=== PATIENT | female | born 1975 | race Caucasian/White ===

== ENCOUNTER 2017-07-15 04:20 | Emergency (ER) | payer OTHER ==
[~2017-07-15] VITALS: Ht 167.6 cm; Wt 99.8 kg
--- NOTE | ~2017-07-15 | CT4 ---
[facility] A Service of [facility] & [facility] RADIOLOGY TEXT RESULTS PATIENT: MARISOL FLOYD LOCATION: SED : 79 UNIT #: [id number] AGE: [address]: Hermilo Cruz MD SEX: F ORDER DR: [id number] [address] [address] [id number] MR#: [id number] Acc #: [id number] NAME: MARISOL FLOYD : 1975 SEX: F STUDY DATE/TIME: 07/15/2017 5:53 UNIT: SED ROOM: STUDY DESCRIPTION: CT Abd and Pelv Wo Cont Attending Physician: eHrmilo Cruz M.D. Ordering Physician: Maikel Owens M.D. Primary Care Physician: Lamberto Contreras M.D. MEDICAL IMAGING REPORT This report is preliminary unless electronic signature is present. EXAM CT abdomen and pelvis without contrast INDICATION Right upper quadrant and mid abdomen pain for 2 days. TECHNIQUE Axial 3 mm images were obtained through the abdomen and pelvis without IV or oral contrast. Sagittal and coronal reconstructions were generated. Comparison to 12/24/2014. This CT examination was performed with one or more of the following radiation dose reduction techniques: automatic exposure control, adjustment of mA and/or kV according to patient size, and iterative reconstruction. FINDINGS The lung bases are clear. The liver, gallbladder, spleen, pancreas, adrenal glands and kidneys are normal. There are no urinary stones or obstruction. The aorta is normal in size. There is no adenopathy. The appendix is normal. The bowel is normal. The uterus and adnexal regions are normal with a slightly prominent left ovary that is unchanged from 12/24/2014. The object that appears to represent the left ovary is about 4.5 cm in diameter. Previously, it was 4.2 cm in diameter. The right ovary is not clearly seen. The bladder is normal. The bones are unremarkable. IMPRESSION 1. The appendix is normal. There are no urinary stones identified. 2. The left ovary appears slightly prominent measuring about 4-4.5 cm in diameter. This is unchanged from 12/24/2014. No cyst is identified. 3. Otherwise, the study is normal. [facility]. [facility] A Service of [facility] & [facility] RADIOLOGY TEXT RESULTS PATIENT: MARISOL FLOYD LOCATION: [facility] [place] : [birth year] UNIT #: [id number] AGE: [address]: Hermilo Cruz MD SEX: F ORDER DR: Dictated by... Dmitry Morse M.D. THIS IS AN ELECTRONICALLY VERIFIED REPORT Dmitry Morse M.D. at 07/15/2017 12:26 PM PENELOPE/sandee TD: 07/15/2017 09:32 JOB #: [id number] MEDICAL IMAGING REPORT Page 1 of 1
[~2017-07-15 04:20] MED LIST: BENTYL20 MG PO; DICLOFENAC PO; FLEXERIL10 MG PO; LAXATIVE; LOESTRIN1 TA1; MUCINEX DM1 TAB.SR . PO; NO MEDICATIONS; PHENERGAN PO; PHENERGAN25 M1 PO; PREDNISONE10 MG PO; PROBIOTIC1 EACH; TRAMADOL HCL50 M1 PO; ULTRAM PO; VICODIN 5/1 TAB 5/50 PO; VICODIN 5/500 T1 TAB PO
[2017-07-15] MEDS ORDERED: MOBIC15 MG PO (04:26)
[2017-07-15 05:18] LABS: BASOPHIL% 0.6 % (0-2.5); EOSINOPHIL# 0.1 X10e3 (0-0.7); EOSINOPHIL% 1.8 % (0.0-7.0); HEMATOCRIT 39.5 % (35.0-45.0); HEMOGLOBIN 13.6 gm/dL (12.0-16.0); LYMPHOCYTE# 2.1 X10e3 (1.0-3.5); LYMPHOCYTE% 39.3 % (17.0-45.0); MEAN CELL VOLUME 88.6 FL (83-96); MEAN CORPUSCULAR HEMOGLOBIN 30.6 PG (28-34); MEAN CORPUSCULAR HGB CONC 34.5 g/dL (30-36); MEAN PLATELET VOLUME 7.3 FL (6.5-11.5); MONOCYTE# 0.4 X10e3 (0-1.0); MONOCYTE% 8.5 % (3.0-12.0); NEUTROPHIL# 2.6 X10e3 (1.5-7.1); NEUTROPHIL% 49.8 % (40-75); PLATELET COUNT 338 X10e3 (140-420); RED BLOOD COUNT 4.46 X10e (3.90-5.30); RED CELL DISTRIBUTION WIDTH 12.9 % (11.0-15.5); WHITE BLOOD COUNT 5.3 X10e3 (4.0-10.5)
[2017-07-15 05:25] LABS: DIFF IND NO
[2017-07-15 05:26] LABS: URINE SOURCE CLEAN CATCH
[2017-07-15 05:28] LABS: URINE APPEARANCE CLEAR; URINE BILIRUBIN NEG (NEG); URINE BLOOD 2+ (NEG); URINE COLOR YELLOW; URINE GLUCOSE NEG (NORM); URINE KETONE NEG (NEG); URINE LEUKOCYTE ESTERASE NEG (NEG); URINE NITRATE NEG (NEG); URINE PROTEIN NEG (NEG); URINE SPECIFIC GRAVITY 1.025 (1.003-1.035)
[2017-07-15 05:29] LABS: MICRO INDICATED? YES
[2017-07-15 05:30] LABS: CULTURE INDICATED? NO; URINE BACTERIA NEG (NEG); URINE SQUAMOUS EPITHELIAL CELL OCCAS /[HPF]; URINE TRANSITIONAL EPI CELLS OCCAS /[HPF]
[2017-07-15 05:40] LABS: ALBUMIN SERUM 4.2 g/dL (3.5-5.0); BILIRUBIN, DIRECT 0.2 mg/dL (0.0-0.2); BILIRUBIN,INDIRECT 0.6 mg/dL (0.0-0.9); BILIRUBIN,TOTAL 0.8 mg/dL (0.2-2.0); BUN/CREATININE RATIO 18.88; CALCIUM SERUM 8.9 mg/dL (8.4-10.2); CREATININE SERUM 0.9 mg/dL (0.6-1.4); GLOM FILT RATE Estimated 80.6 mL/min (>60); POTASSIUM 3.9 mmol/L (3.5-5.1); PROTEIN TOTAL SERUM 6.9 g/dL (6.0-8.3)
== END 2017-07-15 08:08 | disposition home or self-care (01) ==
LOC: SED 04:20
PROVIDERS: Emergency Medicine
DX: M54.5 Low back pain (principal); R03.0 Elevated blood-pressure reading, without diagnosis of hypertension
CPT/HCPCS: 36415; 74176; 80048; 80076; 81003; 83690; 84703; 85025; 96361; 96374; 96375; 99284; J1170; J2405